=== PATIENT | female | born 1975 | race Hispanic/Latino ===

== ENCOUNTER 2019-08-19 21:21 | Emergency (ER) | payer BC ==
[2019-08-19 22:29] LABS: Absolute Lymphocytes (CBC) 3.3 K/uL (0.7-4.9); Basophils % 1.1 % (0-1.3); Lymphocytes % 39.6 % (15.3-44.8); MPV 8.7 fL (7.6-11.3); RBC Red Blood Cell Count 4.21 M/uL (3.86-4.86)
[2019-08-19 22:40] LABS: Albumin 3.6 g/dL (3.4-5.0); Bilirubin Direct 0.2 mg/dL (0-0.2); Bilirubin Total 0.4 mg/dL (0.2-1.0); Potassium 3.3 mmol/L (3.5-5.1); Protein, Total 7.7 g/dL (6.4-8.2)
[2019-08-19] MEDS ORDERED: FENTANYL CITR 100 MCG/2 ML ONE (22:44)
[2019-08-19 22:52] LABS: Urine Bacteria <20 /HPF (<20); Urine Culture Reflex Order NOT NEEDED; Urine Mucus 1+ /HPF (NONE SEEN); Urine RBC <5 /HPF (NONE SEEN)
[2019-08-19 22:53] LABS: Urine Blood NEGATIVE (NEG); Urine Glucose NEGATIVE (NEG); Urine Protein NEGATIVE (NEG)
--- NOTE | 2019-08-20 01:27 | EDPHYS ---
Physician Documentation [facility] Name: Rula Stern Age: 44 yrs Sex: Female : 1975 Arrival Date: 08/19/2019 Time: 21:24 Bed 5 Private MD: ED Physician Jayesh Ocampo HPI: 08/19 22:03 This 44 yrs old Female presents to ER via Ambulatory with complaints of snw Abdominal Pain. 22:03 The patient presents with abdominal pain in the left lower quadrant. Onset: The snw symptoms/episode began/occurred gradually, 3.5 week(s) ago, and became persistent. The symptoms do not radiate. Associated signs and symptoms: Pertinent positives: nausea, Pertinent negatives: diarrhea, fever, vomiting. The symptoms are described as crampy, shooting, stabbing. Severity of pain: At its worst the pain was moderate severe. The patient has not experienced similar symptoms in the past. sees Dr. Pretty, has not seen Director Of Officiating in a few years. Hx of C/s x 2, BTL. 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 - Social history:: Smoking status: Patient uses tobacco products, smokes one-half pack cigarettes per day. - Ebola Screening: : Patient denies travel to an Ebola-affected area in the 21 days before illness onset. ROS: 22:02 Constitutional: Negative for fever, chills, and weight loss, Eyes: Negative for injury, snw pain, redness, and discharge, ENT: Negative for injury, pain, and discharge, Neck: Negative for injury, pain, and swelling, Cardiovascular: Negative for chest pain, palpitations, and edema, Respiratory: Negative for shortness of breath, cough, wheezing, and pleuritic chest pain, Back: Negative for injury and pain, : Negative for injury, bleeding, discharge, and swelling, MS/Extremity: Negative for injury and deformity, Skin: Negative for injury, rash, and discoloration, Neuro: Negative for headache, weakness, numbness, tingling, and seizure, Psych: Negative for depression, anxiety, suicide ideation, homicidal ideation, and hallucinations. 22:02 Abdomen/GI: Positive for abdominal pain. Exam: 22:01 Constitutional: This is a well developed, obese patient who is awake, alert, and in no snw acute distress. Head/Face: Normocephalic, atraumatic. Eyes: Pupils equal round and reactive to light, extra-ocular motions intact. Lids and lashes normal. Conjunctiva and sclera are non-icteric and not injected. Cornea within normal limits. Periorbital areas with no swelling, redness, or edema. ENT: Nares patent. No nasal discharge, no septal abnormalities noted. Tympanic membranes are normal and external auditory canals are clear. Oropharynx with no redness, swelling, or masses, exudates, or evidence of obstruction, uvula midline. Mucous membranes moist. Neck: Trachea midline, no thyromegaly or masses palpated, and no cervical lymphadenopathy. Supple, full range of motion without nuchal rigidity, or vertebral point tenderness. No Meningismus. Chest/axilla: Normal chest wall appearance and motion. Nontender with no deformity. No lesions are appreciated. Cardiovascular: Regular rate and rhythm with a normal S1 and S2. No gallops, murmurs, or rubs. Normal PMI, no JVD. No pulse deficits. Respiratory: Lungs have equal breath sounds bilaterally, clear to auscultation and percussion. No rales, rhonchi or wheezes noted. No increased work of breathing, no retractions or nasal flaring. Abdomen/GI: Soft with normal bowel sounds. No distension or tympany. No guarding or rebound. evidence of tenderness throughout left lower quad. Back: No spinal tenderness. No costovertebral tenderness. Full range of motion. Skin: Warm, dry with normal turgor. Normal color with no rashes, no lesions, and no evidence of cellulitis. MS/ Extremity: Pulses equal, no cyanosis. Neurovascular intact. Full, normal range of motion. Neuro: Awake and alert, GCS 15, oriented to person, place, time, and situation. Cranial nerves II-XII grossly intact. Motor strength 5/5 in all extremities. Sensory grossly intact. Cerebellar exam normal. Normal gait. Psych: Awake, alert, with orientation to person, place and time. Behavior, mood, and affect are within normal limits. Vital Signs: 21:38 Pulse 101; Resp 20; Temp 98.1; Pulse Ox 99% on R/A; Weight 99.79 kg (R); Height 5 ft. 2 aj1 in. (157.48 cm) (R); Pain 08/02; 21:38 BP 171 / 106; aj1 22:13 BP 160 / 94; Pulse 97; Resp 18; Pulse Ox 99% on R/A; ak1 22:30 BP 155 / 89; Pulse 91; Resp 18; Pulse Ox 100% on R/A; ak1 23:35 BP 141 / 91; Pulse 83; Resp 18; Temp 98.1; Pulse Ox 98% on R/A; ak1 08/20 01:14 BP 126 / 82; Pulse 88; Resp 16; Pulse Ox 99% on R/A; ak1 01:46 BP 126 / 78; Pulse 86; Resp 18; Temp 98.1; Pulse Ox 99% on R/A; ak1 08/19 21:38 Body Mass Index 40.24 (99.79 kg, 157.48 cm) [facility] MDM: 08/19 21:48 Patient medically screened. snw 08/20 01:27 Data reviewed: vital signs, nurses notes. Data interpreted: Pulse oximetry: on room air snw is 99 %. Interpretation: normal. Counseling: I had a detailed discussion with the patient and/or guardian regarding: the historical points, exam findings, and any diagnostic results supporting the discharge/admit diagnosis, the presence of at least one elevated blood pressure reading (>120/80) during this emergency department visit, lab results, radiology results, the need for outpatient follow up, to return to the emergency department if symptoms worsen or persist or if there are any questions or concerns that arise at home. Special discussion: Based on the history and exam findings, there is no indication for further emergent testing or inpatient evaluation. I discussed with the patient/guardian the need to see the OB Gyne specialist for further evaluation of the symptoms. I discussed with the patient/guardian the need to see the primary care provider for further evaluation of the symptoms. 10/27 21:50 Order name: Basic Metabolic Panel; Complete Time: 22:42 snw 08/19 21:50 Order name: CBC with Diff; Complete Time: 22:34 snw 08/19 21:50 Order name: Creatinine for Radiology; Complete Time: 22:42 snw 08/19 21:50 Order name: Hepatic Function; Complete Time: 22:42 snw 08/19 21:50 Order name: Lipase; Complete Time: 22:42 snw 08/19 21:50 Order name: Urine Culture snw 08/19 21:50 Order name: IV Saline Lock; Complete Time: 22:13 snw 08/19 21:50 Order name: Labs collected and sent; Complete Time: 22:13 snw 08/19 21:50 Order name: CT Abd/Pelvis - PO and IV Contrast snw 08/19 21:50 Order name: Urine Test (obtain specimen); Complete Time: 22:13 snw 08/19 21:50 Order name: Urine Microscopic Only; Complete Time: 22:56 snw 08/19 22:10 Order name: Urine Dipstick--Ancillary (enter results); Complete Time: 22:56 mw2 08/19 22:10 Order name: Urine --Ancillary (enter results); Complete Time: 22:56 mw2 08/19 21:50 Order name: Urine Dipstick-Ancillary (obtain specimen); Complete Time: 22:13 snw Administered Medications: 08/19 22:50 Drug: fentaNYL (PF) 25 mcg Route: IVP; Site: right antecubital; ak1 23:40 Follow up: Response: No adverse reaction; Pain is decreased ak1 08/20 01:13 Follow up: Response: Pain is decreased; RASS: Alert and Calm (0) ak1 Disposition: 09:04 Co-signature as Attending Physician, Jayesh Ocampo MD I agree with the assessment and tw4 plan of care. Disposition: 08/20/19 01:26 Discharged to Home. Impression: Abdominal and pelvic pain. - Condition is Stable. - Discharge Instructions: Abdominal Pain, Adult, Pelvic Pain, Female. - Prescriptions for Bentyl 20 mg Oral Tablet - take 1 tablet by ORAL route every 6 hours As needed; 20 tablet. Diclofenac Sodium 75 mg Oral Tablet Sustained Release - take 1 tablet by ORAL route 2 times per day; 30 tablet. - Medication Reconciliation Form, Thank You Letter, Antibiotic Education, Prescription Opioid Use form. - Follow up: Private Physician; When: 2 - 3 days; Reason: Recheck today's complaints, Continuance of care, Re-evaluation by your physician. Follow up: Emergency Department; When: As needed; Reason: Worsening of condition. Signatures: Dispatcher [employer] EDAleja Aponte RN RN aj1 Ariadne Olivarez, DIRECTOR OF LEADERSHIP DEVELOPMENT-C DIRECTOR OF LEADERSHIP DEVELOPMENT-Csnw Lois Quiñones RN RN ak1 Jayesh Ocampo MD MD tw4 Corrections: (The following items were deleted from the chart) 01:49 01:26 08/20/2019 01:26 Discharged to Home. Impression: Abdominal and pelvic pain. ak1 Condition is Stable. Forms are Medication Reconciliation Form, Thank You Letter, Antibiotic Education, Prescription Opioid Use. Follow up: Private Physician; When: 2 - 3 days; Reason: Recheck today's complaints, Continuance of care, Re-evaluation by your physician. Follow up: Emergency Department; When: As needed; Reason: Worsening of condition. snw
--- NOTE | 2019-08-20 01:27 | ER ---
Nurse's Notes [facility] Name: Rula Stern Age: 44 yrs Sex: Female : 1975 Arrival Date: 08/19/2019 Time: 21:24 Bed 5 Private MD: Diagnosis: Abdominal and pelvic pain Presentation: 08/19 21:35 Presenting complaint: Patient states: LLQ abdominal pain for the past 2 and a half aj1 weeks. Reports history of PCOS, Reports nausea, diarrhea. Denies vomiting, fever. Transition of care: patient was not received from another setting of care. Onset of symptoms was 2018. Risk Assessment: Do you want to hurt yourself or someone else? Patient reports no desire to harm self or others. Initial Sepsis Screen: Does the patient meet any 2 criteria? HR > 90 bpm. No. Patient's initial sepsis screen is negative. Does the patient have a suspected source of infection? Yes: Acute abdominal pain. Care prior to arrival: None. 21:35 Method Of Arrival: Ambulatory aj1 21:35 Acuity: REE 3 aj1 Triage Assessment: 21:38 General: Appears in no apparent distress. uncomfortable, Behavior is calm, cooperative, aj1 appropriate for age. Pain: Pain currently is 10 out of 10 on a pain scale. Neuro: Level of Consciousness is awake, alert, obeys commands. Cardiovascular: Patient's skin is warm and dry. Respiratory: Airway is patent Respiratory effort is even, unlabored, Respiratory pattern is regular, symmetrical. GI: Reports lower abdominal pain. 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 - Social history:: Smoking status: Patient uses tobacco products, smokes one-half pack cigarettes per day. - Ebola Screening: : Patient denies travel to an Ebola-affected area in the 21 days before illness onset. Screenin:17 Abuse screen: Denies threats or abuse. Denies injuries from another. Nutritional ak1 screening: No deficits noted. Tuberculosis screening: No symptoms or risk factors identified. Fall Risk None identified. 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 pt drinking oral ak1 contract and will notify the nurse upon finishing. . General: Appears in no apparent distress. uncomfortable, Behavior is calm, cooperative. Neuro: Level of Consciousness is awake, alert, obeys commands, Oriented to person, place, time, situation, Jewelry Bench Worker are equal bilaterally Moves all extremities. Full function. Cardiovascular: No deficits noted. Respiratory: Airway is patent Respiratory effort is even, unlabored, Respiratory pattern is regular. GI: Abdomen is round non-distended, Bowel sounds present X 4 quads. Abd is soft X 4 quads Reports lower abdominal pain. : No signs and/or symptoms were reported regarding the genitourinary system. EENT: No signs and/or symptoms were reported regarding the EENT system. Derm: No signs and/or symptoms reported regarding the dermatologic system. Musculoskeletal: No signs and/or symptoms reported regarding the musculoskeletal system. 22:34 General: CT notified pt finished oral contrast. . ak1 23:35 Reassessment: Patient appears in no apparent distress at this time. Patient and/or ak1 family updated on plan of care and expected duration. Pain level reassessed. Patient is alert, oriented x 3, equal unlabored respirations, skin warm/dry/pink. Patient states feeling better. 23:52 Reassessment: pt to CT. ak1 08/20 00:10 Reassessment: returned from CT. ak1 01:46 Reassessment: Patient appears in no apparent distress at this time. Patient and/or ak1 family updated on plan of care and expected duration. Pain level reassessed. Patient is alert, oriented x 3, equal unlabored respirations, skin warm/dry/pink. Patient states feeling better. Patient states symptoms have improved. Vital Signs: 08/19 21:38 Pulse 101; Resp 20; Temp 98.1; Pulse Ox 99% on R/A; Weight 99.79 kg (R); Height 5 ft. 2 aj1 in. (157.48 cm) (R); Pain 08/02; 21:38 BP 171 / 106; aj1 22:13 BP 160 / 94; Pulse 97; Resp 18; Pulse Ox 99% on R/A; ak1 22:30 BP 155 / 89; Pulse 91; Resp 18; Pulse Ox 100% on R/A; ak1 23:35 BP 141 / 91; Pulse 83; Resp 18; Temp 98.1; Pulse Ox 98% on R/A; ak1 08/20 01:14 BP 126 / 82; Pulse 88; Resp 16; Pulse Ox 99% on R/A; ak1 01:46 BP 126 / 78; Pulse 86; Resp 18; Temp 98.1; Pulse Ox 99% on R/A; ak1 08/19 21:38 Body Mass Index 40.24 (99.79 kg, 157.48 cm) aj1 ED Course: 08/19 21:24 Patient arrived in ED. ag3 21:36 Triage completed. aj1 21:48 Ariadne [facility]arez F[facility]-C [facility] snw 21:48 Jayesh Ocampo MD is Attending Physician. snw 21:51 Lois Quiñones, KANDY is Primary Nurse. ak1 22:07 Note: po contrast d/o \T\ 22;00 to pt with instructions /explanation of procedure. mw3 22:08 Initial lab(s) drawn, by me, sent to lab. Urine collected: clean catch specimen. ak1 Inserted saline lock: 22 gauge in right antecubital area, using aseptic technique. Blood collected. 22:16 Patient has correct armband on for positive identification. Placed in gown. Bed in low ak1 position. Call light in reach. Side rails up X 1. Pulse ox on. NIBP on. Door closed. Lights dimmed. Warm blanket given. 22:17 Arm band placed on Patient placed in an exam room, on a stretcher, Patient notified of ak1 wait time. 08/20 00:26 CT Abd/Pelvis - PO and IV Contrast In Process Unspecified. EDMS 01:45 No provider procedures requiring assistance completed. IV discontinued, intact, ak1 bleeding controlled, No redness/swelling at site. Pressure dressing applied. Administered Medications: 08/19 22:50 Drug: fentaNYL (PF) 25 mcg Route: IVP; Site: right antecubital; ak1 23:40 Follow up: Response: No adverse reaction; Pain is decreased ak1 08/20 01:13 Follow up: Response: Pain is decreased; RASS: Alert and Calm (0) ak1 Outcome: 01:26 Discharge ordered by . jennifer 01:45 Discharged to home ambulatory, with family. ak1 01:45 Condition: improved 01:45 Discharge instructions given to patient, family, Instructed on discharge instructions, follow up and referral plans. no drinking with medication, no driving heavy equipment, medication usage, Demonstrated understanding of instructions, follow-up care, medications, Prescriptions given X 2. 01:49 Patient left the ED. ak1 Signatures: Dispatcher [employer] EDMS Aleja Pavon RN RN aj1 Ariadne Olivarez, TRUST ADMINISTRATIVE ASSISTANT-C TRUST ADMINISTRATIVE ASSISTANT-Csnw Lois Quiñones RN RN ak1 Berkley Devries mw3 Sushila Valadez ag3
[2019-08-20 02:05] VITALS: TEMP 98.1
[2019-08-20 02:10] VITALS: O2SAT 99
[2019-08-20 02:11] VITALS: BP 126/78
--- NOTE | 2019-08-20 11:20 | RAD REPORT ---
EXAM DESCRIPTION: CT ABDOMEN PELVIS WITH IV CONTRAST CLINICAL HISTORY: Left lower quadrant pain. COMPARISON: None. TECHNIQUE: CT scan of the abdomen and pelvis was performed with IV contrast. This exam was performed according to our departmental dose-optimization program, which includes automated exposure control, adjustment of the mA and/or kV according to patient size and/or use of iterative reconstruction techn ique. FINDINGS: The lung bases are clear. No pleural or pericardial effusions. Liver, gallbladder, spleen, pancreas, right adrenal gland, kidneys, and pelvic organs are unremarkable. There is a 3.7 cm left a drenal nodule. No hydronephrosis or urinary stones. Mild submucosal fatty infiltration throughout the colon. No bowel obstruction or acute diverticulitis . Appendix is normal. No intraperitoneal free fluid or free air is seen. The aorta is normal caliber. The osseous structures are intact. No body wall hernia. IMPRESSION: No acute intra-abdominal findings. Electronically signed by: Rigoberto Dwyer MD 08/20/2019 12:56 AM CDT Due to temporary technical issues with the PACS/Fluency reporting system, reports are being signed by the in house radiologist as a courtesy to ensure prompt reporting. The interpreting radiologist is f ully responsible for the content of the report.
== END 2019-08-20 01:49 | disposition home or self-care (01) ==
LOC: ER 21:21
DX: R10.2 Pelvic and perineal pain (principal); E03.9 Hypothyroidism, unspecified; R56.9 Unspecified convulsions; F17.210 Nicotine dependence, cigarettes, uncomplicated
CPT/HCPCS: 87088; 85025; 87086; 80048; 36415; 81025; 80076; 83690; 74177; 96374; 99284; Q9967; J3010; 81003; 81015

== ENCOUNTER 2021-02-14 18:42 | Emergency (ER) | payer SELFPAY ==
--- OUTSIDE RECORDS SUMMARY | 2021-02-14 18:45 | XMS REPORT | Continuity of Care Document ---
:1975 Author Organization [facility] t Address [address] [place] [address] Care Team Providers Name Role Phone Lab, Fam Pob I Attending Clinician Unavailable Doctor Unassigned, Name Attending Clinician Unavailable Problems Condition Condition Condition Status Onset Resolution Last Treating Co mments Source Name Details Category Date Date Treatment Clinician Date Generalize Problem Active 2013-12-18 M emoria d 19:17:49 l Convulsive Tod n Myoclonic Generalize Seizure, d Juvenile Convulsive Myoclonic Seizure, Juvenile Active 4 [facility] Epilepsy Problem Active 2013-12-18 Mem oria 19:17:49 l Epilepsy Tod n Active 12/18/2013 [facility] Allergies, Adverse Reactions, Alerts This patient has no known allergies or adverse reactions. Family History Family Member Diagnosis Comments Start Date Stop Date Source Unknown Family Family History 2013-12-18 2013-12-18 Taras Santiago Member 19:17:49 19:17:49 Social History Social Habit Start Date Stop Date Quantity Comments Source Social History 2013-12-18 2013-12-18 Cristina toribio 19:17:49 19:17:49 Medications Ordered Filled Start Stop Current Ordering Indication Dosage Frequency Signature Comments Components Source Medication Medication Date Date Medication? Clinician (SIG) Name Name Adderall 15 Yes (Active) M emoria MG Oral 2-25 l Tablet 19:17: Abe 49 Liothyronin Yes (Active) M emoria e Sodium 5 2-25 l MCG Oral 19:17: Abe Tablet 49 Synthroid Yes (Active) Mem oria 88 MCG Oral 2-25 l Tablet 19:17: Abe 49 Divalproex 2012-10 Yes ; Start Faisal aileen Sodium ER 0-30 Date: l 250 MG Oral 05:00: 08/22/2013 [place] Tablet 00 ; End Extended Date: Release Hour (Active) Vimpat 100 Yes (Active) Me moria MG Oral 6-08 l Tablet 01:47: Abe 54 Divalproex Yes ; Start Faisal aileen Sodium ER 6-07 Date: l 500 MG Oral 05:00: 03/30/2013 [place] Tablet 00 ; End Extended Date: Release Hour (Active) Depakote ER 2012- Yes (Active) M emoria 500 MG Oral 3-15 l Tablet 14:59: [place] Extended 04 Release 24 Hour Vimpat 50 Yes ; Start Memor ia MG Oral 3-15 Date: l Tablet 05:00: 01/05/2013 Missy nn 00 (Active) Divalproex 190-0 Yes ; Start Faisal aileen Sodium ER 1- Date: l 500 MG Oral 06:00: [place] Tablet 00 ; End Extended Date: Release Hour (Active) Procedures This patient has no known procedures. Plan of Care Planned Activity Planned Date Details Comments Source Future Scheduled Test 2013-12-18 19:17:49 Plan of Care [code [facility] = 67166-4] Future Scheduled Test 2013-08-22 19:16:13 [facility] 28336-[facility] Future Scheduled Test 2013-04-19 05:06:38 Plan of Care [code [facility] = 12264-8] Future Scheduled Test 2012-12-21 01:28:25 Plan of Care [code [facility] = 46855-1] Encounters Start End Encounter Admission Attending Care Care Encounter Source Date/Time Date/Time Type Type Clinicians Facility Department ID 2020-11-16 2020-11-16 Laboratory Lab, [facility] [id number] 15:52:05 16:12:05 Only Fam b [facility] [id number] [place] [id number] Profluis [phone] nal [address] 2020-07-27 2020-07-27 Laboratory Lab, [facility] [place] [id number] 13:40:28 14:00:28 Only Fam Pob I Health [id number] [place] [id number] Professio [id number] nal [address] 2020-05-11 2020-05-11 Laboratory Lab, [facility] [place] [id number] 13:36:44 13:56:44 Only Fam Pob I Health [id number] [place] [id number] Professio [id number] nal [address] 2020-05-11 2020-05-11 Letter Doctor ANDREW [id number] 00:00:00 00:00:00 (Out) Unassigned, HARINDER [id number] [place] [facility] [id number] 2013-12-18 2013-12-18 Outpatient 3 3 [id number] 13:17:49 13:17:49 2013-10-09 2013-10-09 Outpatient 3 3 [id number] 10:11:37 10:11:37 2013-10-03 2013-10-03 Outpatient 3 3 [id number] 13:47:30 13:47:29 2013-08-22 2013-08-22 Outpatient 3 3 [id number] 14:16:13 14:16:13 2013-04-19 2013-04-19 Outpatient 3 3 [id number] 00:07:01 00:06:38 2013-03-30 2013-03-30 Outpatient 3 3 [id number] 20:48:14 20:47:54 2013-03-21 2013-03-21 Outpatient 3 3 [id number] 00:38:14 00:37:46 2013-02-01 2013-02-01 Outpatient 3 3 [id number] 21:22:45 21:22:27 2013-01-05 2013-01-05 Outpatient 3 3 [id number] 09:59:21 09:59:04 2012-12-20 2012-12-20 Outpatient 3 3 [id number] 19:28:43 19:28:25 2012-10-16 2012-10-16 Outpatient 3 3 [id number] 04:34:10 04:33:55 Results This patient has no known results.
--- NOTE | 2021-02-14 23:38 | ER ---
Nurse's Notes [facility] Name: Rula Stern Age: 46 yrs Sex: Female : 1975 Arrival Date: 02/14/2021 Time: 18:45 Bed Waiting Private MD: Diagnosis: Presentation: 02/14 18:53 Chief complaint: Patient states: Reports left lower back pain for 3 months. States she ll1 has a adrenal gland mass that has been increasing in size the past two years. Drinking lots of fluids today. Noticed swelling all over body today. No SOB or cough. Coronavirus screen: Client denies travel out of the [place] in the last 14 days. At this time, the client does not indicate any symptoms associated with coronavirus-19. Ebola Screen: Patient denies travel to an Ebola-affected area in the 21 days before illness onset. Initial Sepsis Screen: Does the patient meet any 2 criteria? HR > 90 bpm. No. Patient's initial sepsis screen is negative. Does the patient have a suspected source of infection? No. Patient's initial sepsis screen is negative. Risk Assessment: Do you want to hurt yourself or someone else? Patient reports no desire to harm self or others. Onset of symptoms was November 16, 2020. 18:53 Method Of Arrival: Ambulatory ll1 18:53 Acuity: REE 3 ll1 23:36 Note registration states pt left the ED. bb Historical: - Allergies: 18:58 No Known Allergies; ll1 - PMHx: 18:58 ADD/ADHD; Hypothyroidism; PCOS; Seizures; ll1 - PSHx: 18:58 ; Tonsillectomy; ll1 - Immunization history:: Client reports having NOT received the Covid vaccine. Flu vaccine is not up to date. - Social history:: Smoking status: Patient reports the use of cigarette tobacco products, smokes one-half pack cigarettes per day. Vital Signs: 18:53 BP 155 / 109; Pulse 104; Resp 17; Temp 97.8; Pulse Ox 98% ; Weight 108.86 kg; Height 5 ll1 ft. 2 in. (157.48 cm); Pain 10/10; 18:53 Body Mass Index 43.90 (108.86 kg, 157.48 cm) 1 ED Course: 18:45 Patient arrived in ED. mr 18:56 Triage completed. ll1 18:58 Arm band placed on. ll1 Administered Medications: No medications were administered Outcome: 23:37 Patient left the ED. bb Signatures: [place] Cortez Brenda, RN RN bb Donald Kelly RN RN 1
[2021-02-14 23:43] VITALS: BP 155/109; TEMP 97.8; O2SAT 98
== END 2021-02-14 23:37 | disposition left against medical advice (07) ==
LOC: ER 18:42
DX: Z53.21 Procedure and treatment not carried out due to patient leaving prior to being seen by health care provider (principal)
CPT/HCPCS: 99281